=== PATIENT | male | born 1990 | race Caucasian/White ===

== ENCOUNTER 2018-01-12 22:15 | Emergency (ER) | payer OTHER ==
[~2018-01-12] VITALS: Ht 182.9 cm; Wt 61.2 kg
[~2018-01-12 22:15] MED LIST: ALBU90I INH; Amoxicillin500 MG PO; CLOT1TC TOP; CRUTCH4 USE; CYCL10 PO; DOXY100 PO; HYDACE5 PO; HYDR1TAB94 PO; IBUP400 PO; IBUP800 PO; LORA1 PO; METPRE4DP PO; NAPR500 PO; Norco 5-325 Ta1 EACH PO; OXYACE5T PO; POTCHL20ER PO; PRED10 PO; PRED20 PO; PROACE100 PO; PROM25 PO; RANI150 PO; RXCODACET PO; RXHYDACE PO; RXOXYACE PO; TRAZ50 PO; Ultram50 MG PO; Veetids 500500 MG PO; Zithromax250 MG PO; Zofran4 MG PO; [UNRECOGNIZED DRUG - REMARK]
== END 2018-01-13 00:54 | disposition left against medical advice (07) ==
LOC: ER 22:15
DX: Z53.21 Procedure and treatment not carried out due to patient leaving prior to being seen by health care provider (principal)
CPT/HCPCS: 73610

== ENCOUNTER 2018-10-28 10:54 | Emergency (ER) | payer MEDICAID ==
[~2018-10-28] VITALS: Ht 182.9 cm; Wt 61.2 kg
== END 2018-10-28 13:29 | disposition left against medical advice (07) ==
LOC: ER 10:54
DX: Z53.21 Procedure and treatment not carried out due to patient leaving prior to being seen by health care provider (principal)
CPT/HCPCS: 93005; 93010

== ENCOUNTER 2020-02-05 16:50 | Emergency (ER) | payer OTHER ==
[~2020-02-05] VITALS: Ht 185.4 cm; Wt 63.5 kg
== END 2020-02-05 20:30 | disposition home or self-care (01) ==
LOC: ER 16:50
DX: S20.212A Contusion of left front wall of thorax, initial encounter (principal); S60.212A Contusion of left wrist, initial encounter; V43.52XA Car driver injured in collision with other type car in traffic accident, initial encounter; Y92.410 Unspecified street and highway as the place of occurrence of the external cause
CPT/HCPCS: 71101; 73130; 99284-25

== ENCOUNTER 2020-08-18 17:01 | Emergency (ER) | payer OTHER ==
[~2020-08-18] VITALS: Ht 182.9 cm; Wt 63.5 kg
== END 2020-08-18 21:24 | disposition home or self-care (01) ==
LOC: ER 17:01
DX: M79.672 Pain in left foot (principal)
CPT/HCPCS: 73630; 99283-25; A9270

== ENCOUNTER 2022-09-02 15:25 | Emergency (ER) | payer OTHER ==
[~2022-09-02] VITALS: Ht 185.4 cm; Wt 63.5 kg
[2022-09-02] MEDS ORDERED: SUMA25 PO (18:56)
[2022-09-02] MEDS ORDERED: VERAPAMIL ER120 M1 PO (18:58)
== END 2022-09-02 19:06 | disposition home or self-care (01) ==
LOC: ER 15:25
DX: G44.009 Cluster headache syndrome, unspecified, not intractable (principal)
CPT/HCPCS: 70450; A9270; J1100

== ENCOUNTER 2023-04-19 04:45 | Emergency (ER) | payer OTHER ==
[~2023-04-19] VITALS: Ht 182.9 cm; Wt 63.5 kg
[~2023-04-19 04:45] MED LIST changes: +SUMA25 PO; +VERAPAMIL ER120 M1 PO
[2023-04-19] MEDS ORDERED: IBUP800 PO (05:19)
[2023-04-19] MEDS ORDERED: ACET500 PO (05:58)
[2023-04-19] MEDS ORDERED: PENVK500 PO (05:58)
[2023-04-19 06:03] VITALS: BP 154/85
== END 2023-04-19 06:04 | disposition home or self-care (01) ==
LOC: ER 04:45
DX: K04.7 Periapical abscess without sinus (principal); Z79.899 Other long term (current) drug therapy; G43.909 Migraine, unspecified, not intractable, without status migrainosus
CPT/HCPCS: 99282; A9270

== ENCOUNTER 2023-09-29 04:32 | Emergency (ER) | payer OTHER ==
[~2023-09-29] VITALS: Ht 182.9 cm; Wt 68.0 kg
[~2023-09-29 04:32] MED LIST changes: +ACET500 PO; +PENVK500 PO
[2023-09-29 05:03] VITALS: BP 134/71
[2023-09-29] MEDS ORDERED: ValACYClovir HCL 500 MG Tab PO ONE (06:25)
[2023-09-29] MEDS ORDERED: PredniSONE 20 MG Tab PO ONE (06:25)
[2023-09-29] MEDS ORDERED: Valtrex1000 MG PO (06:26)
[2023-09-29] MEDS ORDERED: PRED20 PO (06:26)
== END 2023-09-29 06:36 | disposition home or self-care (01) ==
LOC: ER 04:32
DX: B02.9 Zoster without complications (principal)
CPT/HCPCS: 99282; A9270; J7512

== ENCOUNTER 2024-07-31 04:55 | Emergency (ER) | payer OTHER ==
[~2024-07-31] VITALS: Ht 182.9 cm; Wt 63.5 kg
[~2024-07-31 04:55] MED LIST changes: +Valtrex1000 MG PO
[2024-07-31 06:15] VITALS: BP 129/87
[2024-07-31] MEDS ORDERED: AMOX250 PO (07:14)
[2024-07-31] MEDS ORDERED: Amoxicillin 500 MG Cap PO ONE (07:15)
== END 2024-07-31 07:47 | disposition home or self-care (01) ==
LOC: ER 04:55
DX: J02.0 Streptococcal pharyngitis (principal); G43.909 Migraine, unspecified, not intractable, without status migrainosus
CPT/HCPCS: 87430; 99284; A9270

== ENCOUNTER 2024-09-12 04:56 | Emergency (ER) | payer OTHER ==
[~2024-09-12] VITALS: Wt 70.3 kg
[~2024-09-12 04:56] MED LIST changes: +AMOX250 PO
[2024-09-12 05:08] VITALS: BP 143/83
[2024-09-12] MEDS ORDERED: Ibuprofen 400 MG Tab PO ONE (06:55)
== END 2024-09-12 07:04 | disposition home or self-care (01) ==
LOC: ER 04:56
DX: M25.461 Effusion, right knee (principal); Z79.2 Long term (current) use of antibiotics
CPT/HCPCS: 73560-RT; 99283-25; A9270